=== PATIENT | female | born 1940 | race Caucasian/White ===

== ENCOUNTER 2019-09-28 10:47 | Emergency (ER) | payer MEDICARE, SELFPAY ==
[2019-09-28 10:50] VITALS: BP 172/66; PULSE 53; RESP 20; TEMP 36.2; O2SAT 99
--- NOTE | 2019-09-28 10:53 | ED.FEMALEGU ---
HPI - Female Genitourinary General Chief complaint: Urogenital-Female Stated complaint: BURNING URINATION Time Seen by Provider: 09/28/19 10:54 Source: patient and RN notes reviewed History of Present Illness HPI Narrative: Patient is a 78-year-old female presents the urgent care with complaints of dysuria/possible UTI for 2 days. Patient does not have extensive history of urinary tract infections. Denies any fever, nausea, vomiting, back pain, abdominal pain. States that she is been taking cranberry supplements as well as increasing her water intake and drinking cranberry juice. No other acute complaints. No acute distress noted. Patient read the plan of care. Related Data Home Medications Medication Instructions Recorded Confirmed atenolol 50 mg PO DAILY 09/28/19 09/28/19 diclofenac sodium 75 mg PO BID 09/28/19 09/28/19 diltiazem HCl 240 mg PO DAILY 09/28/19 09/28/19 fluticasone propionate [Flovent 1 puff INHALATION Q12H 09/28/19 09/28/19 HFA] metformin 1,000 mg PO DAILY 09/28/19 09/28/19 omeprazole 20 mg PO BID 09/28/19 09/28/19 oxybutynin chloride 5 mg PO BID 09/28/19 09/28/19 sertraline 150 mg PO DAILY 09/28/19 09/28/19 Allergies Allergy/AdvReac Type Severity Reaction Status Date / Time No Known Allergies Allergy Verified 09/28/19 11:02 Review of Systems Review of Systems: Narrative: CONSTITUTIONAL: Denies fever, chills, or sweats. EYES: Denies visual changes, redness, or discharge. ENT: Denies rhinorrhea, congestion, sore throat, or otalgia. CARDIOVASCULAR: Denies chest pain, palpitations, or edema. RESPIRATORY: Denies cough or dyspnea. GASTROINTESTINAL: Denies abdominal pain, nausea, vomiting, or diarrhea. GENITOURINARY: reports of dysuria SKIN: Denies rash or itching. MUSCULOSKELETAL: Denies back pain, joint pain, or myalgia. NEUROLOGIC: Denies headache, numbness, or weakness. All other systems reviewed are negative, except as documented in HPI. PMFSH Comments At the time of my signature, I reviewed and agree with the nursing past medical, surgical, social, and family history. There is no relevant family history pertinent to the patient complaint. Exam Narrative: Exam Narrative: GENERAL: This is a well-nourished, well-developed patient, in no apparent distress. HEAD: normocephalic, atraumatic. EYES: PERRL. Sclera clear/white. Vision is grossly intact. EARS: External ears normal NOSE: External nose normal with no obvious nasal discharge THROAT: Mucous membranes moist NECK: Neck supple CARDIOVASCULAR: Regular rate and rhythm without murmurs, gallops, or rubs. RESPIRATORY: Clear to auscultation. Breath sounds equal bilaterally. No wheezes, rales, or rhonchi. GASTROINTESTINAL: Abdomen soft, non-tender, nondistended. SKIN: warm, intact with no suspicious lesions or rash, good texture and turgor. NEURO: awake, alert, and oriented to person, place and time. There were no obvious focal neurologic abnormalities. EXTREMITIES: No clubbing, cyanosis, or edema. BACK: Negative bilateral CVA tenderness Course Vital Signs Vital signs: Vital Signs Temperature 97.2 F L 09/28/19 10:50 Pulse Rate 53 L 09/28/19 10:50 Respiratory Rate 20 09/28/19 10:50 Blood Pressure 172/66 H 09/28/19 10:50 Pulse Oximetry 99 09/28/19 10:50 Temperature 97.2 F L 09/28/19 10:50 Pulse Rate 53 L 09/28/19 10:50 Respiratory Rate 20 09/28/19 10:50 Blood Pressure 172/66 H 09/28/19 10:50 Pulse Oximetry 99 09/28/19 10:50 Reviewed?patient is informed that they may have pre-hypertension or hypertension based on a blood pressure reading in the department. I recommend the patient call the primary care provider listed on their discharge instructions or a physician of their choice this week to arrange follow-up for further evaluation of possible pre-hypertension or hypertension. MDM - Female Genitourinary MDM Narrative Medical decision making narrative: Reviewed lab results with the patient. She is aware that u
== END 2019-09-28 11:38 | disposition home or self-care (01) ==
PROVIDERS: Emergency Provider Nurse Practitioner Family
DX: N39.0 Urinary tract infection, site not specified (principal); I10 Essential (primary) hypertension; J45.909 Unspecified asthma, uncomplicated; M19.90 Unspecified osteoarthritis, unspecified site; E11.9 Type 2 diabetes mellitus without complications
CPT/HCPCS: 81003; 87077; 87086; 87088; 87186; 99203; G0463